=== PATIENT | female | born 1990 | race Asian ===

== ENCOUNTER 2021-07-10 06:25 | Emergency (ER) | payer OTHER ==
[~2021-07-10] VITALS: Ht 160 cm; Wt 61.2 kg
[2021-07-10 06:36] VITALS: BP 111/73
--- NOTE | 2021-07-10 06:45 | NUR ---
PT TAKEN TO BED 1
--- NOTE | 2021-07-10 06:54 | NUR ---
Dr. Herrera examining patient.
[2021-07-10] MEDS ORDERED: predniSONE 20 MG TAB PO ONE (07:00)
[2021-07-10] MEDS ORDERED: AZITHROMYCIN 250 MG TAB PO ONE (07:00)
[2021-07-10] MEDS ORDERED: PROM118S5 PO (07:02)
[2021-07-10] MEDS ORDERED: AZIT250T11 PO (07:02)
[2021-07-10] MEDS ORDERED: PRED20TA5 PO (07:02)
--- NOTE | 2021-07-10 07:10 | NUR ---
PATIENT CLEARED FOR DISCHARGE AT THIS TIME. NO OTHER COMPLAINTS OR CONCERNS FOLLOWING DISHCARGE TEACHING. ADVISED TO FOLLOW UP WITH PCP AND RETURN IF CONDITION WORSENS.
[2021-07-10 07:11] VITALS: BP 111/73
== END 2021-07-10 07:07 | disposition home or self-care (01) ==
LOC: MED 06:25
DX: J40 Bronchitis, not specified as acute or chronic (principal); B96.89 Other specified bacterial agents as the cause of diseases classified elsewhere; Z86.39 Personal history of other endocrine, nutritional and metabolic disease; Z98.890 Other specified postprocedural states; Z79.899 Other long term (current) drug therapy; Z79.2 Long term (current) use of antibiotics
CPT/HCPCS: 99283; J7512